=== PATIENT | female | born 1995 | race Caucasian/White ===

== ENCOUNTER 2019-08-15 01:34 | Emergency (ER) | payer OTHER ==
[~2019-08-15] VITALS: Ht 160 cm; Wt 53.5 kg
[~2019-08-15 01:34] MED LIST: COLACE100 MG PO; TRAMADOL50 M1 PO
[2019-08-15 04:12] VITALS: BP 105/62
== END 2019-08-15 04:12 | disposition home or self-care (01) ==
LOC: ED 01:34
DX: R07.89 Other chest pain (principal); R06.02 Shortness of breath; R20.2 Paresthesia of skin
CPT/HCPCS: 36415; Q0092